=== PATIENT | male | born 1980 | race Caucasian/White ===

== ENCOUNTER 2017-03-25 16:03 | Emergency (ER) | payer OTHER ==
[~2017-03-25] VITALS: Ht 175.3 cm; Wt 90.7 kg
--- NOTE | 2017-03-25 16:27 | NUR ---
Pt triaged, no ER beds available at this time. Pt ambulated to ER waiting room.
[2017-03-25] MEDS: KETOROLAC TROMETHAMINE 60 MG INJ IM ONE (19:26)
--- NOTE | 2017-03-25 19:27 | NUR ---
Patient discharged to home in stable conditon. Written and verbal after care instructions given. Patient verbalizes understanding of instructions. PATIENT LEFT WITH STABLE GAIT.
[2017-03-25 19:29] VITALS: BP 122/94
[2017-03-25] MEDS ORDERED: KETOROLAC TROMETHAMINE 60 MG INJ IM ONE (19:40)
== END 2017-03-25 19:29 | disposition home or self-care (01) ==
LOC: ER 16:04
DX: G89.29 Other chronic pain (principal); M54.9 Dorsalgia, unspecified
CPT/HCPCS: 96372; 99283; A4663; J1885